=== PATIENT | female | born 1990 | race American Indian/Alaskan Native ===

== ENCOUNTER 2017-10-29 09:17 | Inpatient (IN) | payer BC, MEDICAID ==
[2017-10-29 10:58] LABS: Alanine Aminotransferase 8 units/L (7-56); Albumin 3.7 g/dL (3.9-5); BUN/Creatinine Ratio 30; Blood Urea Nitrogen 9 mg/dL (7-17); Hemolysis Index 3
[2017-10-29 11:04] LABS: Basophils # (Auto) 0.1 K/mm3 (0.0-0.1); Basophils % (Auto) 0.8 % (0.0-1.8); Eosinophils % (Auto) 0.3 % (0.0-4.3); Hematocrit 32.2 % (30.3-42.9); Hemoglobin 10.2 gm/dl (10.1-14.3); Lymphocytes # (Auto) 1.6 K/mm3 (1.2-5.4); Lymphocytes % (Auto) 19.6 % (13.4-35.0); Mean Corpuscular HGB Conc 32 % (30-34); Mean Corpuscular Volume 76 fl (79-97); Monocytes # (Auto) 0.3 K/mm3 (0.0-0.8); Monocytes % (Auto) 3.6 % (0.0-7.3); Platelet Count 439 K/mm3 (140-440); Red Blood Count 4.26 M/mm3 (3.65-5.03); Red Cell Distribution Width 18.7 % (13.2-15.2)
[2017-10-29 11:05] LABS: Mean Corpuscular Hemoglobin 24 pg (28-32)
[2017-10-29 13:39] LABS: Bacteria,Urine 1+ /HPF (Negative); Bilirubin,Urine NEG (Negative); Blood,Urine NEG (Negative); Color,Urine Yellow (Yellow); Mucus,Urine 3+ /HPF; Protein,Urine <15 mg/dL mg/dL (Negative); Urobilinogen,Urine < 2.0 mg/dL (<2.0)
[2017-10-29 13:55] LABS: HCG Qualitative,Urine Negative (Negative)
[2017-10-29] MEDS ORDERED: ANTIVERT PO ONE (14:10)
[2017-10-29] MEDS ORDERED: NACL 0.9% 1000 ML 1,000 ML IV ONE (14:10)
[2017-10-29] MEDS ORDERED: ZOFRAN IV ONE (14:10)
--- NOTE | 2017-10-29 14:13 | Emergency Department Report ---
Blank Doc - Documentation Documentation: 27-year-old obese female presents to the hospital complaining of waking up this morning with room spinning sensation. Symptoms are worse with head movement. Patient feels better with her eyes closed. 2 episodes of vomiting prior to arrival. No pain reported. Positive nystagmus with lateral gaze worse on the left compared to the right Patient likely has vertigo labs reviewed. Meclizine, NS, and Zofran initiated Midlevel to evaluate
--- NOTE | 2017-10-29 15:37 | Emergency Department Report ---
ED Abdominal Pain HPI - General Chief Complaint: Nausea/Vomiting/Diarrhea Stated Complaint: NAUSEA/VOMITING Time Seen by Provider: 10/29/17 13:51 Source: patient Mode of arrival: Ambulatory Limitations: No Limitations - History of Present Illness MD Complaint: abdominal pain (RUQ) -: Last night Location: RUQ Radiation: R flank, chest Migration to: no migration Severity: moderate Severity scale (0 -10): 6 Quality: aching, sharp Consistency: intermittent Improves With: nothing Worsens With: eating Associated Symptoms: nausea, vomiting. denies: diarrhea, fever, chills, constipation, dysuria, hematemesis, hematochezia, melena, hematuria, anorexia, syncope Treatments Prior to Arrival: prescription analgesics - Related Data Previous Rx's Medication Instructions Recorded Last Taken Type Amoxicillin [Trimox CAP] 500 mg PO Q8H #30 capsule 08/06/14 Unknown Rx traMADol [Ultram 50 MG tab] 50 mg PO Q6HR PRN #15 tablet 07/30/15 Unknown Rx Allergies Allergy/AdvReac Type Severity Reaction Status Date / Time hydrocodone Allergy Itching Verified 07/30/15 14:13 ED Review of Systems ROS: Stated complaint: NAUSEA/VOMITING Other details as noted in HPI Constitutional: denies: chills, fever Respiratory: denies: cough, shortness of breath, wheezing Cardiovascular: denies: chest pain, palpitations, edema, syncope Gastrointestinal: denies: abdominal pain, nausea, diarrhea Neurological: denies: headache, weakness, paresthesias Psychiatric: denies: anxiety, depression ED Past Medical Hx - Past Medical History Previous Medical History?: No - Surgical History Past Surgical History?: No Additional Surgical History: 2 X, CS - Social History Smoking Status: Never Smoker Substance Use Type: None - Medications Home Medications: Home Medications Medication Instructions Recorded Confirmed Last Taken Type Amoxicillin [Trimox CAP] 500 mg PO Q8H #30 capsule 08/06/14 Unknown Rx traMADol [Ultram 50 MG tab] 50 mg PO Q6HR PRN #15 tablet 07/30/15 Unknown Rx ED Physical Exam - General Limitations: No Limitations General appearance: alert, in no apparent distress - Respiratory Respiratory exam: Present: normal lung sounds bilaterally. Absent: respiratory distress - Cardiovascular Cardiovascular Exam: Present: regular rate, normal rhythm, normal heart sounds. Absent: systolic murmur, diastolic murmur, rubs, gallop - GI/Abdominal GI/Abdominal exam: Present: soft. Absent: distended, guarding, rebound, rigid, organomegaly, mass - Neurological Exam Neurological exam: Present: alert, oriented X3, normal gait - Psychiatric Psychiatric exam: Present: normal affect, normal mood - Skin Skin exam: Present: warm, dry, intact, normal color. Absent: rash ED Course Vital Signs 10/29/17 09:58 Temperature 98.6 F Pulse Rate 111 H Respiratory 18 Rate Blood Pressure 158/88 O2 Sat by Pulse 98 Oximetry ED Medical Decision Making - Lab Data Result diagrams: 10/29/17 10:18 10/29/17 10:18 Critical care attestation.: If time is entered above; I have spent that time in minutes in the direct care of this critically ill patient, excluding procedure time. ED Disposition Condition: Stable Referrals: PRIMARY CARE, [Primary Care Provider] - 3-5 Days
--- NOTE | 2017-10-29 16:02 | Emergency Department Report ---
<ANNALISA JOY YARIFuad - Last Filed: 10/29/17 18:54> ED Dizziness HPI - General Chief Complaint: Nausea/Vomiting/Diarrhea Stated Complaint: NAUSEA/VOMITING Time Seen by Provider: 10/29/17 13:51 Source: patient Mode of arrival: Ambulatory Limitations: No Limitations - History of Present Illness Initial Comments: This is a 27 y.o. female that presents with dizziness and nausea that started this morning. She woke up this morning and it felt like the room was spinning and felt very nauseous. She had 2 episodes of vomiting prior to arrival. Reports dizziness is worse with sitting up and positional changes. Reports the room as spinning currently. States she fainted once at home and called EMS to bring her in for evaluation. Denies chest pain, SOB, pain, recent injury, recent travel, fever, and edema. MD Complaint: dizziness, lightheadedness, near syncope -: This morning Timing: awoke with symptoms Description: "room spinning", lightheadedness, nausea History of Same: No History of Trauma: No Severity: moderate Improves With: remaining still Worsens With: movement, position Associated Symptoms: syncope. denies: ataxia, chest pain, confusion, cough, diaphoresis, fever/chills, loss of appetite, malaise, rash, seizure, shortness of breath, weakness - Related Data Previous Rx's Medication Instructions Recorded Last Taken Type Amoxicillin [Trimox CAP] 500 mg PO Q8H #30 capsule 08/06/14 Unknown Rx traMADol [Ultram 50 MG tab] 50 mg PO Q6HR PRN #15 tablet 07/30/15 Unknown Rx Meclizine [Antivert] 25 mg PO TID PRN #20 tablet 10/29/17 Unknown Rx Ondansetron [Zofran Odt] 4 mg PO TID PRN #15 tab.rapdis 10/29/17 Unknown Rx Allergies Allergy/AdvReac Type Severity Reaction Status Date / Time hydrocodone Allergy Itching Verified 07/30/15 14:13 ED Review of Systems ROS: Stated complaint: NAUSEA/VOMITING Other details as noted in HPI Constitutional: denies: chills, fever Respiratory: denies: cough, shortness of breath, wheezing Cardiovascular: denies: chest pain, palpitations, edema, syncope Gastrointestinal: nausea, vomiting. denies: abdominal pain, diarrhea Neurological: vertigo (dizziness and lightheadedness). denies: headache, weakness, numbness, paresthesias Psychiatric: denies: anxiety, depression ED Past Medical Hx - Past Medical History Previous Medical History?: No - Surgical History Past Surgical History?: No Additional Surgical History: 2 X, CS - Social History Smoking Status: Never Smoker Substance Use Type: None - Medications Home Medications: Home Medications Medication Instructions Recorded Confirmed Last Taken Type Amoxicillin [Trimox CAP] 500 mg PO Q8H #30 capsule 08/06/14 Unknown Rx traMADol [Ultram 50 MG tab] 50 mg PO Q6HR PRN #15 tablet 07/30/15 Unknown Rx Meclizine [Antivert] 25 mg PO TID PRN #20 tablet 10/29/17 Unknown Rx Ondansetron [Zofran Odt] 4 mg PO TID PRN #15 tab.rapdis 10/29/17 Unknown Rx ED Physical Exam - General Limitations: No Limitations General appearance: alert, in no apparent distress - Eye Eye exam: Present: normal appearance, PERRL, EOMI, nystagmus (with lateral gaze) . Absent: conjunctival injection, periorbital swelling, periorbital tenderness Pupils: Present: normal accommodation - ENT ENT exam: Present: mucous membranes moist - Respiratory Respiratory exam: Present: normal lung sounds bilaterally. Absent: respiratory distress, wheezes, rales, rhonchi, stridor, accessory muscle use, decreased breath sounds - Cardiovascular Cardiovascular Exam: Present: regular rate, normal rhythm, normal heart sounds. Absent: systolic murmur, diastolic murmur, rubs, gallop - GI/Abdominal GI/Abdominal exam: Present: soft, normal bowel sounds. Absent: distended, tenderness, guarding, rebound, rigid, organomegaly, mass - Neurological Exam Neurological exam: Present: alert, oriented X3, CN II-XII intact, reflexes normal, other (cerebellar coordination intact). Absent: normal gait, motor sensory deficit - Psychiatric Psychiatric exam: Present: normal affect, normal mood - Skin Skin exam: Present: warm, dry, intact, normal color. Absent: rash ED Course Vital Signs 10/29/17 09:58 Temperature 98.6 F Pulse Rate 111 H Respiratory 18 Rate Blood Pressure 158/88 O2 Sat by Pulse 98 Oximetry ED Medical Decision Making - Lab Data Result diagrams: 10/29/17 10:18 10/29/17 10:18 - Medical Decision Making This is a 27 y.o. female that presents with dizziness and nausea that started this morning. Patient is stable and was examined by me and Dr. Horan. Given antivert 50 mg po, zofran 4 mg IV, NS 1L bolus, valium 5 mg po once in ER. Obtained CMP, CBC, UA, & HCG. All unremarkable. CT of head w/o contrast ordered and pending. Discussed plan to f/u with ENT for outpatient management. Educated on possibly becoming sleepy with medication. Risk and side effects discussed. Chart signed and consulted with attending, Dr. Horan. CT of head pending. Critical care attestation.: If time is entered above; I have spent that time in minutes in the direct care of this critically ill patient, excluding procedure time. ED Disposition Clinical Impression: Vertigo, Unsteady gait Disposition: OP ADMIT IP TO THIS HOSP Is pt being admited?: No Does the pt Need Aspirin: No Condition: Stable Instructions: Vertigo (ED) Additional Instructions: Follow up with primary care provider in 24-72 hours. Follow up with Ear, Nose, and Throat in 2-3 days for management of vertigo. Increase fluid intake. Change positions slowly to prevent dizziness. Prescriptions: Meclizine [Antivert] 25 mg PO TID PRN #20 tablet PRN Reason: Vertigo Ondansetron [Zofran Odt] 4 mg PO TID PRN #15 tab.rapdis PRN Reason: Nausea And Vomiting Referrals: [facility] [Outside] - 3-5 Days YUDITH ROMERO MD [Staff Physician] - 3-5 Days [facility] [Provider Group] - 3-5 Days Time of Disposition: 16:25 Print Language: [facility] [place] <LESLIE HORAN - Last Filed: 10/29/17 19:34> ED Medical Decision Making - Lab Data Result diagrams: 10/29/17 10:18 10/29/17 10:18 - Radiology Data Radiology results: report reviewed ct head: naf - Medical Decision Making Despite ED treatment patient continues to have persistent significant vertigo and is unable to ambulate. CT head unremarkable. Additional Valium [address] Ritter informed and will pass information to oncoming hospitalist Dr. Quinteros for admission ED Disposition Is pt being admited?: Yes Time of Disposition: 19:33 (dr jones/tigre)
[2017-10-29] MEDS ORDERED: VALIUM PO ONE (16:44)
--- NOTE | 2017-10-29 19:00 | Cat Scan Report ---
FINAL REPORT EXAM: CT HEAD/BRAIN WO CON HISTORY: dizziness/syncope TECHNIQUE: CT head without contrast PRIORS: None. FINDINGS: No acute intra-axial or extra-axial hemorrhage is identified. There is no evidence of midline shift or mass effect. The ventricles and sulci are within normal limits. Brice-white matter differentiation is intact. No acute parenchymal abnormalities seen. Bony calvarium is grossly intact. Visualized portions of the mastoids and paranasal sinuses are unremarkable. IMPRESSION: Negative CT head
[2017-10-29] MEDS ORDERED: VALIUM IV ONE (19:21)
[2017-10-29] MEDS ORDERED: VALIUM ONE (19:30)
--- NOTE | 2017-10-29 23:49 | Event Note ---
Date: 10/29/17 See dictated H/p in reports
[2017-10-30] MEDS ORDERED: TYLENOL PO PRN (05:02)
[2017-10-30] MEDS ORDERED: ZOFRAN IV PRN (05:02)
[2017-10-30] MEDS ORDERED: PERCOCET 5/325 PO PRN (05:02)
[2017-10-30] MEDS ORDERED: SODIUM CHLORIDE FLUSH SYRINGE 10 ML IV PRN (05:02)
[2017-10-30] MEDS ORDERED: MORPHINE IV PRN (05:02)
[2017-10-30] MEDS ORDERED: ANTIVERT PO PRN (05:05)
--- NOTE | 2017-10-30 06:03 | History and Physical Report ---
CHIEF COMPLAINT: Severe dizziness and nausea since morning. HISTORY OF PRESENT ILLNESS: A 27-year-old -[place] female with history of vertigo in the past, 1 year, comes in for severe dizziness and nauseousness in the morning. The patient apparently had threw 2-3 episodes of vomiting. Feels very dizzy and lightheaded. Dizziness is worse sitting or lying also. Reports the room is spinning. She stated that she fainted at home and called EMS to bring in for evaluation. No chest pain. No fever noticed. No cough. No sore throat. PAST MEDICAL HISTORY: Vertigo a couple of times through this year. PAST SURGICAL HISTORY: few years ago. SOCIAL HISTORY: Does not smoke. No alcohol, no recreational drugs. FAMILY HISTORY: Hypertension. CURRENT MEDICATIONS: Meclizine, amoxicillin, and tramadol. REVIEW OF SYSTEMS: Significant for vertigo, dizziness and vomiting. Otherwise, review of systems is essentially negative. She has difficulty walking because of the spinning sensation. A 14-point review of systems done otherwise negative. PHYSICAL EXAMINATION: GENERAL: Young female, cooperative during examination. VITAL SIGNS: Blood pressure is 158/88, has come down to 130/66; temperature is 98.6, pulse is 111, respirations are 18. HEENT: Unremarkable. Pupils are equal and reactive. NECK: Supple, no lymphadenopathy, no thyromegaly. LUNGS: Clear to auscultation and percussion. Good air entry. CARDIOVASCULAR: S1, S2 heard. No gallop, no murmur, no rub. Apical impulse in left fifth intercostal space and midclavicular line. ABDOMEN: Soft and benign. No hepatosplenomegaly. No guarding, no rigidity. Hernial orifices are normal. EXTREMITIES: Good pedal pulses. No pedal edema. CENTRAL NERVOUS SYSTEM: Alert and oriented x 4, nonfocal exam. LABORATORY DATA: Urinalysis negative. Blood counts are normal. MCV and MCH slightly low 76 and 24 respectively. Chemistries are significant for sodium of being slightly low at 135, bicarbonate is 20; otherwise, electrolytes are normal. Total protein is 8.7, albumin is 3.7. ASSESSMENT AND PLAN: 1. Acute dehydration. IV fluids for the time being. 2. Acute labyrinthitis. Meclizine restarted at 12.5 q. 12 hours. 3. Hyponatremia, mild. Should correct with IV normal saline. 4. Deep venous thrombosis prophylaxis, heparin subcutaneously. Probable admission for 1 day; can be kept in observation status. JOB# [id number] [place]/NTS
[2017-10-30 07:51] LABS: Alanine Aminotransferase 6 units/L (7-56); Albumin 3.5 g/dL (3.9-5); BUN/Creatinine Ratio 20; Blood Urea Nitrogen 8 mg/dL (7-17); Calcium 8.7 mg/dL (8.4-10.2); Hemolysis Index 0
[2017-10-30] MEDS: HEPARIN SUB-Q SCH ×2 (09:21→21:03)
[2017-10-30] MEDS: PEPCID PO SCH ×2 (09:21→21:02)
[2017-10-30] MEDS: D5NS 1,000 ML IV SCH (10:30)
[2017-10-30] MEDS: SODIUM CHLORIDE FLUSH SYRINGE 10 ML IV SCH ×2 (10:30→22:07)
--- NOTE | 2017-10-30 16:03 | Progress Note ---
Assessment and Plan Assessment and plan: 27F who pw dizzines, vertigo and vomiting Dehydration acute labyrinthitis hyponatremia, mild; hypokalemia; replete iv Hospitalist Physical - Constitutional Vitals: Temp Pulse Resp BP Pulse Ox 98.3 F 91 H 20 107/71 97 10/30/17 07:35 10/30/17 07:35 10/30/17 07:35 10/30/17 07:35 10/30/17 07:35 Results - Labs CBC & Chem 7: 10/29/17 10:18 10/30/17 06:30 Labs: Laboratory Last Values WBC 8.2 K/mm3 (4.5-11.0) 10/29/17 10:18 RBC 4.26 M/mm3 (3.65-5.03) 10/29/17 10:18 Hgb 10.2 gm/dl (10.1-14.3) 10/29/17 10:18 Hct 32.2 % (30.3-42.9) 10/29/17 10:18 MCV 76 fl (79-97) L 10/29/17 10:18 MCH 24 pg (28-32) L 10/29/17 10:18 MCHC 32 % (30-34) 10/29/17 10:18 RDW 18.7 % (13.2-15.2) H 10/29/17 10:18 Plt Count 439 K/mm3 (140-440) 10/29/17 10:18 Lymph % (Auto) 19.6 % (13.4-35.0) 10/29/17 10:18 [place] % (Auto) 3.6 % (0.0-7.3) 10/29/17 10:18 Eos % (Auto) 0.3 % (0.0-4.3) 10/29/17 10:18 Baso % (Auto) 0.8 % (0.0-1.8) 10/29/17 10:18 Lymph # 1.6 K/mm3 (1.2-5.4) 10/29/17 10:18 [place] # 0.3 K/mm3 (0.0-0.8) 10/29/17 10:18 Eos # 0.0 K/mm3 (0.0-0.4) 10/29/17 10:18 Baso # 0.1 K/mm3 (0.0-0.1) 10/29/17 10:18 Seg Neutrophils % 75.7 % (40.0-70.0) H 10/29/17 10:18 Seg Neutrophils # 6.2 K/mm3 (1.8-7.7) 10/29/17 10:18 Sodium 136 mmol/L (137-145) L 10/30/17 06:30 Potassium 3.5 mmol/L (3.6-5.0) L 10/30/17 06:30 Chloride 101.1 mmol/L (98-107) 10/30/17 06:30 Carbon Dioxide 24 mmol/L (22-30) 10/30/17 06:30 Anion Gap 14 mmol/L 10/30/17 06:30 BUN 8 mg/dL (7-17) 10/30/17 06:30 Creatinine 0.4 mg/dL (0.7-1.2) L 10/30/17 06:30 Estimated GFR > 60 ml/min 10/30/17 06:30 BUN/Creatinine Ratio 20 % 10/30/17 06:30 Glucose 106 mg/dL (65-100) H 10/30/17 06:30 Hemoglobin A1c 4.9 % (4-6) 10/30/17 06:28 Calcium 8.7 mg/dL (8.4-10.2) 10/30/17 06:30 Total Bilirubin 0.20 mg/dL (0.1-1.2) 10/30/17 06:30 AST 7 units/L (5-40) 10/30/17 06:30 ALT 6 units/L (7-56) L 10/30/17 06:30 Alkaline Phosphatase 77 units/L (35-129) 10/30/17 06:30 Total Protein 7.6 g/dL (6.3-8.2) 10/30/17 06:30 Albumin 3.5 g/dL (3.9-5) L 10/30/17 06:30 Albumin/Globulin Ratio 0.9 % 10/30/17 06:30 Urine Color Yellow (Yellow) 10/29/17 Unknown Urine Turbidity Clear (Clear) 10/29/17 Unknown Urine pH 5.0 (5.0-7.0) 10/29/17 Unknown Ur Specific [place] 1.026 (1.003-1.030) 10/29/17 Unknown Urine Protein <15 mg/dl mg/dL (Negative) 10/29/17 Unknown Urine Glucose (UA) Neg mg/dL (Negative) 10/29/17 Unknown Urine Ketones Neg mg/dL (Negative) 10/29/17 Unknown Urine Blood Neg (Negative) 10/29/17 Unknown Urine Nitrite Neg (Negative) 10/29/17 Unknown Urine Bilirubin Neg (Negative) 10/29/17 Unknown Urine Urobilinogen < 2.0 mg/dL (<2.0) 10/29/17 Unknown Ur Leukocyte Esterase Neg (Negative) 10/29/17 Unknown Urine WBC (Auto) 3.0 /HPF (0.0-6.0) 10/29/17 Unknown Urine RBC (Auto) 2.0 /HPF (0.0-6.0) 10/29/17 Unknown U Epithel Cells (Auto) 4.0 /HPF (0-13.0) 10/29/17 Unknown Urine Bacteria (Auto) 1+ /HPF (Negative) 10/29/17 Unknown Urine Mucus 3+ /HPF 10/29/17 Unknown Urine HCG, Qual Negative (Negative) 10/29/17 Unknown
[2017-10-30] MEDS ORDERED: NS/KCL 40MEQ 40 MEQ/1,000 ML BAG IV ONE (17:09)
--- NOTE | 2017-10-30 19:36 | Magnetic Resonance Report ---
FINAL REPORT EXAM: MR BRAIN WO CON HISTORY: slurred speech TECHNIQUE: MRI brain without contrast PRIORS: None. FINDINGS: There is normal signal throughout the brain parenchyma. No evidence for brain edema pattern or mass effect. Ventricles and sulci are within normal limits. No evidence for acute intra-axial or extra-axial hemorrhage. No evidence for acute restriction on diffusion-weighted study. Brainstem and posterior fossa structures are unremarkable. IMPRESSION: Negative. No focal abnormality identified
[2017-10-31 07:28] LABS: Basophils % (Auto) 0.4 % (0.0-1.8); Eosinophils # (Auto) 0.1 K/mm3 (0.0-0.4); Eosinophils % (Auto) 0.8 % (0.0-4.3); Hematocrit 28.7 % (30.3-42.9); Hemoglobin 8.7 gm/dl (10.1-14.3); Lymphocytes # (Auto) 2.3 K/mm3 (1.2-5.4); Lymphocytes % (Auto) 33.9 % (13.4-35.0); Mean Corpuscular HGB Conc 31 % (30-34); Mean Corpuscular Volume 76 fl (79-97); Monocytes # (Auto) 0.4 K/mm3 (0.0-0.8); Monocytes % (Auto) 5.8 % (0.0-7.3); Platelet Count 406 K/mm3 (140-440); Red Blood Count 3.78 M/mm3 (3.65-5.03); Red Cell Distribution Width 18.8 % (13.2-15.2)
[2017-10-31 07:44] LABS: Mean Corpuscular Hemoglobin 23 pg (28-32)
[2017-10-31 07:47] LABS: BUN/Creatinine Ratio 16; Blood Urea Nitrogen 8 mg/dL (7-17); Calcium 8.5 mg/dL (8.4-10.2); Hemolysis Index 0
[2017-10-31] MEDS: HEPARIN SUB-Q SCH (11:04)
[2017-10-31] MEDS: PEPCID PO SCH (11:05)
[2017-10-31] MEDS: D5NS 1,000 ML IV SCH (11:06)
[2017-10-31] MEDS: SODIUM CHLORIDE FLUSH SYRINGE 10 ML IV SCH (11:07)
--- NOTE | 2017-10-31 14:41 | Discharge Summary ---
Providers - Providers Date of Admission: 10/29/17 19:34 Attending physician: ALAYNA CRENSHAW MD Primary care physician: DOOR CAPTAIN Hospitalization Condition: Stable Pertinent studies: MR brain; Negative. No focal abnormality identified Hospital course: 27F who pw dizzines, vertigo and vomiting Dehydration acute labyrinthitis hyponatremia, mild; hypokalemia; replete iv Disposition: DC-01 TO HOME OR SELFCARE Time spent for discharge: 33 minutes Core Measure Documentation - Palliative Care Palliative Care/ Comfort Measures: Not Applicable - Core Measures Any of the following diagnoses?: none Exam - Constitutional Vitals: Temp Pulse Resp BP Pulse Ox 98.0 F 87 18 144/69 99 10/31/17 07:37 10/31/17 07:37 10/31/17 07:37 10/31/17 07:37 10/31/17 07:37 General appearance: Present: no acute distress, well-nourished - EENT Eyes: Present: PERRL ENT: hearing intact, clear oral mucosa - Neck Neck: Present: supple, normal ROM - Respiratory Respiratory effort: normal Respiratory: bilateral: CTA - Cardiovascular Heart Sounds: Present: S1 & S2. Absent: rub, click - Extremities Extremities: pulses symmetrical, No edema Peripheral Pulses: within normal limits - Abdominal General gastrointestinal: Present: soft, non-tender, non-distended, normal bowel sounds Female genitourinary: Present: normal - Integumentary Integumentary: Present: clear, warm, dry - Musculoskeletal Musculoskeletal: gait normal, strength equal bilaterally - Psychiatric Psychiatric: appropriate mood/affect, intact judgment & insight - Neurologic Neurologic: CNII-XII intact, moves all extremities Plan Follow up with: [facility] [Provider Group] - 3-5 Days [facility] [Outside] - 3-5 Days YUDITH ROMERO MD [Staff Physician] - 3-5 Days Prescriptions: Meclizine [Antivert] 25 mg PO TID PRN #20 tablet PRN Reason: Vertigo Ondansetron [Zofran Odt] 4 mg PO TID PRN #15 tab.rapdis PRN Reason: Nausea And Vomiting
[2017-10-31 16:06] VITALS: BP 107/69
== END 2017-10-31 17:35 | disposition home or self-care (01) | DRG 641 ==
LOC: ED 09:17 → 3A 19:34
PROVIDERS: ADMIT Internal Medicine; ATTEND Internal Medicine
DX: E87.1 Hypo-osmolality and hyponatremia (principal); H83.09 Labyrinthitis, unspecified ear; E87.6 Hypokalemia; Z88.6 Allergy status to analgesic agent; Z88.1 Allergy status to other antibiotic agents; Z88.8 Allergy status to other drugs, medicaments and biological substances; Z88.5 Allergy status to narcotic agent; E86.0 Dehydration
CPT/HCPCS: 36415; 70450; 70551; 80048; 80053; 81001; 81025; 83036; 83735; 84100; 85025; 96361; 96374; 96375; J1644; J2405; J7030; J7042